=== PATIENT | male | born 1955 | race Caucasian/White ===

== ENCOUNTER → 2017-04-15 | Outpatient (CLI) | payer OTHER ==
[~2017-04-15] MED LIST: ASPEC81 PO; ATOR-26 PO; CRG25 PO; DIGO0.122 PO; GLCSR500 PO; LISI-725 PO; LSX20 PO; NTRGSL/4 UT; OMEG10007 PO; PRLSR20 PO; REPA1TAB40 PO; SITA100T3 PO; TADA5TAB11 PO
--- NOTE | 2017-04-15 11:46 | DIAGNOSTIC IMAGING REPORT ---
CHEST 2 VIEWS ROUTINE HISTORY: Preop. COMPARISON: Chest 02/19/2014. FINDINGS: The heart is mildly enlarged. No focal lung consolidations to suggest pneumonia. No evidence for pulmonary edema. Left basilar linear densities favor scarring or atelectasis. No pleural effusions. No pneumothorax. IMPRESSION: Mild cardiomegaly. Otherwise, no acute process within the chest. Electronically signed by: Chris Elena M.D. 04/15/2017 11:45 AM Dictated Date/Time: 04/15/2017 11:43 AM
[2017-04-15 12:01] LABS: BASO % 0.8 %; BASO ABS # 0.06 K/uL (0-0.2); COMPLETE YES; EOS % 2.9 %; IG% 0.3 %; LYMPH % 16.6 %; MEAN CORPUSCULAR HEMOGLOBIN 29.6 pg (25-34); MEAN CORPUSCULAR HGB CONC 34.4 g/dl (32-36); MEAN PLATELET VOLUME 12.2 fL (7.4-10.4); MONO % 12.2 %; NEUT % 67.2 %; PLATELET COUNT 154 K/uL (130-400); RED BLOOD COUNT 5.23 M/uL (4.7-6.1); WHITE BLOOD COUNT 7.81 K/uL (4.8-10.8)
[2017-04-15 12:22] LABS: BLOOD UREA NITROGEN 18 mg/dl (7-18); BUN/CREATININE RATIO 16.6 (10-20); CARBON DIOXIDE 26 mmol/L (21-32); CHLORIDE 107 mmol/L (98-107); GLUCOSE 140 mg/dl (70-99); POTASSIUM 4.3 mmol/L (3.5-5.1); SODIUM 142 mmol/L (136-145)
[2017-04-15 12:23] LABS: CALCIUM 8.9 mg/dl (8.5-10.1)
== END | disposition home or self-care (01) ==
LOC: C.CPL 10:57
PROVIDERS: ATTEND Orthopaedic Surgery
DX: Z01.812 Encounter for preprocedural laboratory examination (principal); M25.511 Pain in right shoulder; I51.7 Cardiomegaly